=== PATIENT | male | born 2000 | race Two or more races ===

== ENCOUNTER 2018-03-18 14:19 | Emergency (ER) | payer MEDICAID, OTHER, SELFPAY ==
[~2018-03-18] VITALS: Ht 170.2 cm; Wt 73.0 kg
[2018-03-18 14:27] VITALS: BP 129/89
[2018-03-18] MEDS ORDERED: KETOROLAC 30 MG/1 ML IM ONE (15:00)
[2018-03-18] MEDS ORDERED: KETOROLAC 30 MG/1 ML ONE (15:02)
== END 2018-03-18 16:41 | disposition home or self-care (01) ==
LOC: ED 16:02
DX: S16.1XXA Strain of muscle, fascia and tendon at neck level, initial encounter (principal); S46.911A Strain of unspecified muscle, fascia and tendon at shoulder and upper arm level, right arm, initial encounter; V59.49XA Driver of pick-up truck or van injured in collision with other motor vehicles in traffic accident, initial encounter; Y93.89 Activity, other specified; Y92.89 Other specified places as the place of occurrence of the external cause; Y99.8 Other external cause status
CPT/HCPCS: 72125; 73030; 96372; 99284; J1885